=== PATIENT | female | born 1965 | race Two or more races ===

== ENCOUNTER 2019-03-03 04:36 | Emergency (ER) | payer MEDICARE, MEDICAID ==
[~2019-03-03] VITALS: Ht 154.9 cm; Wt 83.9 kg
--- NOTE | 2019-03-03 05:10 | NUR ---
BIBS FOR C/O BACKACHE S/P FALL THREE NIGHTS AGO. - NUMBNESS OR TINGLING.
[2019-03-03] MEDS ORDERED: KETOROLAC TROMETHAMINE INJ 60 MG/2 ML VIAL IM ONE (05:19)
--- NOTE | 2019-03-03 05:25 | NUR ---
PT WAS PICKED UP FOR X.RAY
[2019-03-03] MEDS: KETOROLAC TROMETHAMINE INJ 60 MG/2 ML VIAL IM ONE (05:28)
[2019-03-03 06:02] VITALS: BP 134/90
--- NOTE | 2019-03-03 06:30 | NUR ---
Patient given written and verbal discharge instructions. Patient verbalizes understanding of instructions. Patient is ambulatory with steady gait. . Patient given list of available shelters in surrounding area, snacks procided. pt has her own car for transportation.
== END 2019-03-03 07:20 | disposition home or self-care (01) ==
LOC: ER 04:41
DX: M54.5 Low back pain (principal); F41.9 Anxiety disorder, unspecified; F32.9 Major depressive disorder, single episode, unspecified; G89.29 Other chronic pain; Z88.0 Allergy status to penicillin; W01.0XXA Fall on same level from slipping, tripping and stumbling without subsequent striking against object, initial encounter; Y93.K1 Activity, walking an animal; Y92.89 Other specified places as the place of occurrence of the external cause; Y99.8 Other external cause status
CPT/HCPCS: 72110; 96372; 99283; J1885

== ENCOUNTER 2019-11-09 00:33 | Emergency (ER) | payer MEDICAID, MEDICARE ==
[~2019-11-09] VITALS: Ht 162.6 cm; Wt 88.0 kg
[2019-11-09 00:38] VITALS: BP 137/90
--- NOTE | 2019-11-09 00:58 | NUR ---
BIBS W/ THE SERVICE DOG FOR C/O TOOTHACHE NOT RELIEVED BY OTC PAIN MEDICATIONS. PT CURRENTLY ON CLINDAMYCIN FOR TEETH INFECTION. PT IS ALSO REQUESTING MEDICATIO REFILL FOR HER DESMOPRESSIN TAKEN FOR HYPOPITUITARISM.
--- NOTE | 2019-11-09 01:03 | NUR ---
DR. GRANGER AT THE BED SIDE
== END 2019-11-09 01:20 | disposition home or self-care (01) ==
LOC: ER 00:35
DX: Z76.0 Encounter for issue of repeat prescription (principal); F41.9 Anxiety disorder, unspecified; F32.9 Major depressive disorder, single episode, unspecified; G89.29 Other chronic pain; Z88.0 Allergy status to penicillin